=== PATIENT | female | born 1985 | race Asian ===

== ENCOUNTER 2018-02-20 08:29 | Emergency (ER) | payer OTHER ==
[2018-02-20 08:40] VITALS: BP 137/83
--- NOTE | 2018-02-20 13:39 | UC ---
Wilbur Richard Thomas, scribed for Brian Dunne MD on 02/20/18 at 0906 . GI Bleed HPI - HPI Summary HPI Summary: The patient is a 32 year old female complaining of rectal bleeding intermittently with bowel movements that is worse in the last two days. Every time she has a BM, she strains and there is some blood mixed with stools. Her pain is 2/10. She has no other complaints. - History Of Current Complaint Chief Complaint: UCGeneralIllness Stated Complaint: URINARY ISSUE Time Seen by Provider: 02/20/18 08:44 Hx Obtained From: Patient Hx Last Menstrual Period: 01/06/18 Onset/Duration: Lasting Days - 2, Still Present Timing: Intermittent Episodes Lasting: Severity: Blood-Streaked Stool Severity Currently: Mild Pain Intensity: 2 Pain Scale Used: 0-10 Numeric Aggravating Factor(s): Bowel Movement Alleviating Factor(s): Other - Nothing Associated Signs And Symptoms: Positive: Other - Blood mixed with stools - Allergies/Home medications Allergies/Adverse Reactions: Allergies Allergy/AdvReac Type Severity Reaction Status Date / Time No Known Allergies Allergy Verified 02/20/18 08:41 PMH/Surg Hx/FS Hx/Imm Hx Previously Healthy: Yes - NEGATIVE: DM, HTN - Surgical History Surgical History: None - Family History Family History: Patient denies any relevant FHx - Social History Alcohol Use: None Substance Use Type: None Smoking Status (MU): Never Smoked Tobacco - Immunization History Most Recent Influenza Vaccination: had during Most Recent Tetanus Shot: needs Most Recent Pneumonia Vaccination: na Review of Systems Constitutional: Negative - fever Gastrointestinal: Other - Bloody streaked stools Is Patient Immunocompromised?: No All Other Systems Reviewed And Are Negative: Yes Physical Exam - Summary Physical Exam Summary: VITAL SIGNS: Reviewed. GENERAL: Patient is a well-developed and nourished female who is lying comfortable in the stretcher. Patient is not in any acute respiratory distress. HEAD AND FACE: Normocephalic EYES: PERRLA, EOMI x 2. EARS: Hearing grossly intact. MOUTH: Oropharynx within normal limits. NECK: Supple, trachea is midline, no adenopathy, no JVD, no carotid bruit. CHEST: Symmetric, no tenderness at palpation LUNGS: Clear to auscultation bilaterally. No wheezing or crackles. CVS: Regular rate and rhythm, S1 and S2 present, no murmurs or gallops appreciated. ABDOMEN: Soft, non-tender. Bowel sounds are normal. No abdominal abnormal pulsations. RECTAL: I did a rectal examination, and the patient has one small hemorrhoid. It does not look like a thrombosed hemorrhoid. She has normal sphincter tone. She does not have melena or bright red blood per rectum. Juan José RN was present as a female area safety manager. EXTREMITIES: Full ROM in all major joints, no edema, no cyanosis or clubbing. NEURO: Alert and oriented x 3. No acute neurological deficits. Speech is normal and follows commands. SKIN: Dry and warm Triage Information Reviewed: Yes Vital Signs: Initial Vital Signs Temp 98 F 02/20/18 08:36 Pulse 92 02/20/18 08:36 Resp 16 02/20/18 08:36 BP 137/83 02/20/18 08:36 Pulse Ox 100 02/20/18 08:36 Vital Signs Reviewed: Yes Bleed Course/Dx - Course Course Of Treatment: The patient is a 32 year old female complaining of rectal bleeding intermittently with bowel movements that is worse in the last two days. Every time she has a BM, she strains and there is some blood mixed with stools. She has no other complaints. I did a rectal examination, and the patient has one small hemorrhoid. It does not look like a thrombosed hemorrhoid. She has normal sphincter tone. She does not have melena or bright red blood per rectum. The patient is diagnosed with hemorrhoids and given a prescription for Anusol. She was instructed to follow up with primary care in 2- 3 days. The patient was found to have increased BP in UC. The patient will follow up with PCP for better control of BP. I discussed all the findings and test results with the patient. Patient was instructed to return to the urgent care or go to ER immediately if any of the symptoms return or worsen. Plan of care was discussed with the patient, and patient understands and agrees. All questions were answered to patient satisfaction. There were no further complaints or concerns. - Differential Dx/Diagnosis Provider Diagnoses: Hemorrhoids Discharge - Sign-Out/Discharge Documenting (check all that apply): Discharge - Discharge Plan Condition: Stable Disposition: HOME Prescriptions: Hydrocortisone SUPP* [Anusol HC Supp*] 25 mg ME BID #14 supp Patient Education Materials: Hemorrhoids (DC) Referrals: [facility] [place] [facility] REFERRAL [Outside] Additional Instructions: FOLLOW UP WITH YOUR PRIMARY CARE PROVIDER WITHIN ONE WEEK FOR HIGH BLOOD PRESSURE NOTED TODAY. RETURN TO URGENT CARE OR THE EMERGENCY DEPARTMENT FOR ANY WORSENING OR NEW SYMPTOMS. The documentation as recorded by the Wilbur mack Thomas accurately reflects the service I personally performed and the decisions made by , Brian Dunne MD.
== END 2018-02-20 09:05 | disposition home or self-care (01) ==
LOC: UCEAST 08:29
DX: K64.9 Unspecified hemorrhoids (principal)
CPT/HCPCS: 82270; 99212; G0463

== ENCOUNTER 2019-01-24 16:10 | Emergency (ER) | payer OTHER ==
[2019-01-24 16:26] VITALS: BP 119/75
--- NOTE | 2019-01-24 16:45 | UC ---
Throat Pain/Nasal Shaquille HPI - HPI Summary HPI Summary: ST x 2 days, no better today feels much worse, now has fever - History of Current Complaint Chief Complaint: UCRespiratory Stated Complaint: SORE THROAT Time Seen by Provider: 01/24/19 16:33 Hx Obtained From: Patient Hx Last Menstrual Period: 01/06/18 Onset/Duration: Gradual Onset Severity: Moderate Pain Intensity: 8 Cough: Nonproductive Associated Signs & Symptoms: Positive: Fever - Allergies/Home Medications Allergies/Adverse Reactions: Allergies Allergy/AdvReac Type Severity Reaction Status Date / Time No Known Allergies Allergy Verified 01/24/19 16:26 PMH/Surg Hx/FS Hx/Imm Hx Previously Healthy: Yes - Surgical History Surgical History: None - Family History Known Family History: Positive: None Family History: Patient denies any relevant FHx - Social History Occupation: Employed Part-time Lives: With Family Alcohol Use: None Substance Use Type: None Smoking Status (MU): Never Smoked Tobacco - Immunization History Most Recent Influenza Vaccination: had during had fall Most Recent Tetanus Shot: needs Most Recent Pneumonia Vaccination: na Review of Systems All Other Systems Reviewed And Are Negative: Yes Constitutional: Positive: Fever, Fatigue Skin: Negative: Rash Eyes: Positive: Negative ENT: Positive: Sore Throat. Negative: Ear Ache, Sinus Pain/Tenderness Respiratory: Positive: Cough Cardiovascular: Positive: Negative. Negative: Chest Pain Musculoskeletal: Positive: Negative Neurological: Positive: Negative. Negative: Headache Is Patient Immunocompromised?: No Physical Exam Triage Information Reviewed: Yes Appearance: Well-Appearing, No Pain Distress, Well-Nourished Vital Signs: Initial Vital Signs Temp 100.0 F 01/24/19 16:24 Pulse 88 01/24/19 16:24 Resp 18 01/24/19 16:24 BP 119/75 01/24/19 16:24 Pulse Ox 100 01/24/19 16:24 Vital Signs Reviewed: Yes Eyes: Positive: Conjunctiva Clear ENT: Positive: Pharyngeal erythema, TMs normal. Negative: Sinus tenderness Neck exam: Normal Neck: Positive: No Lymphadenopathy Respiratory: Positive: Lungs clear Cardiovascular Exam: Normal Cardiovascular: Positive: RRR Musculoskeletal Exam: Normal Musculoskeletal: Positive: Strength Intact, ROM Intact Neurological Exam: Normal Neurological: Positive: Alert Psychological Exam: Normal Skin Exam: Normal Skin: Negative: Rashes Throat Pain/Nasal Course/Dx - Differential Dx/Diagnosis Differential Diagnosis/HQI/PQRI: Influenza, Sinusitis, Tonsillitis, URI Provider Diagnosis: Influenza B, Strep throat Discharge - Sign-Out/Discharge Documenting (check all that apply): Patient Departure All imaging exams completed and their final reports reviewed: No Studies - Discharge Plan Condition: Stable Disposition: HOME Prescriptions: Azithromycin TAB* [Zithromax TAB (Z-MORELIA) 250 mg #6 tabs] 250 mg PO DAILY #4 tab Oseltamivir CAP* [Tamiflu CAP*] 75 mg PO BID #9 cap Patient Education Materials: Strep Throat (ED), Influenza (ED) Forms: *Work Release Referrals: No Primary Care Phys,NOPCP [Primary Care Provider] - Patient Referred [facility] [[facility].BUSINESS, APPLICATION, OTHER] - Additional Instructions: drink plenty of fluids and rest make sure you get your prescriptions filled and start taking them as directed No work tomorrow ibuprofen 600mg every 6 hours for fever and pain Return here or to the emergency room if your symptoms worsen at anytime - Billing Disposition and Condition Condition: STABLE Disposition: Home - Attestation Statements Provider Attestation: I was available for consult. This patient was seen by the [facility]. The patient was not presented to , seen by or examined by mo -Mingo Santizo MD
[2019-01-24 17:01] LABS: Influenza B Molecular POSITIVE (Negative)
[2019-01-24] MEDS ORDERED: Oseltamivir CAP* 75 MG CAP PO ONE (17:05)
[2019-01-24] MEDS ORDERED: Azithromycin TAB* 250 MG PO ONE (17:07)
== END 2019-01-24 17:24 | disposition home or self-care (01) ==
LOC: UCEAST 16:10
DX: J10.1 Influenza due to other identified influenza virus with other respiratory manifestations (principal); J02.0 Streptococcal pharyngitis
CPT/HCPCS: 87651; 99212; A9270-GY; G0463

== ENCOUNTER 2020-11-13 12:48 | Inpatient (IN) ==
[2020-11-13] MEDS ORDERED: Buffered Lidocaine 1% SYRIN 1 ml INTRADERM ONE (13:41)
[2020-11-13] MEDS ORDERED: Lactated Ringers 1000 ml BAG 1,000 ML IV ONE (13:41)
[2020-11-13 14:29] LABS: Hematocrit 35 % (35-47); Red Blood Count 5.43 10^6 /uL (3.70-4.87); White Blood Count 8.8 10^3/uL (3.5-10.8)
[2020-11-13 14:53] LABS: BUN/Creatinine Ratio 10.2 (8-20); EGFR Non-African American 143.7 (>60); Potassium 3.8 mmol/L (3.5-5.0)
[2020-11-13 14:54] LABS: Albumin 3.7 g/dL (3.2-5.2); Albumin/Globulin Ratio 1.2 (1-3); Calcium 8.8 mg/dL (8.6-10.3); EGFR African American 173.9 (>60); Globulin 3.1 g/dL (2-4); Total Bilirubin 0.3 mg/dL (0.2-1.0); Total Protein 6.8 g/dL (6.4-8.9)
[2020-11-13 14:59] LABS: ABS Lymphocytes 1.8 10^3/ul (1.0-4.8); ABS Monocytes 0.6 10^3/ul (0-0.8); ABS Neutrophils 6.4 10^3/ul (1.5-7.7); Eosinophil % 0.4 %; Lymphocyte % 19.9 %; Mean Corpuscular HGB Conc 32 g/dL (31-36); Mean Corpuscular Hemoglobin 20 pg (27-31); Mean Corpuscular Volume 64 fL (80-97); Mean Platelet Volume 9.6 fL (7.4-10.4); Platelet Count 226 10^3/uL (150-450); Red Cell Distribution Width 17 % (10-15)
[2020-11-13 15:00] LABS: Urine Benzodiazepine Screen None Detected (None Detect); Urine Cannabinoids Screen None Detected (None Detect); Urine Opiates Screen None Detected (None Detect)
[2020-11-13] MEDS: Lactated Ringers 1000 ml BAG 1,000 ML IV SCH ×2 (16:32→17:43)
[2020-11-13] MEDS ORDERED: Terbutaline INJ 1 MG/ML 1 ml VIAL ONE (16:39)
[2020-11-13] MEDS ORDERED: Oxytocin in LR 20 UNITS/1,000 ML BAG IVPB ONE (20:20)
[2020-11-13] MEDS ORDERED: Witch Hazel PAD JAR TOPICAL PRN (22:20)
[2020-11-13] MEDS ORDERED: Dibucaine 1% OINT 28.35 GM TUBE PR PRN (22:20)
[2020-11-13] MEDS ORDERED: Lactated Ringers 1000 ml BAG 1,000 ML IV SCH (23:00)
[2020-11-13] MEDS ORDERED: Oxytocin in LR 20 UNITS/1,000 ML BAG IVPB SCH (23:00)
[2020-11-13] MEDS ORDERED: Ammonia Inhalant 1 EA AMP ONE (23:13)
[2020-11-14 08:24] LABS: ABS Lymphocytes 1.8 10^3/ul (1.0-4.8); ABS Monocytes 0.9 10^3/ul (0-0.8); ABS Neutrophils 12.7 10^3/ul (1.5-7.7); Eosinophil % 0.1 %; Hematocrit 32 % (35-47); Hemoglobin 10.2 g/dL (12.0-16.0); Lymphocyte % 11.8 %; Mean Corpuscular HGB Conc 32 g/dL (31-36); Mean Corpuscular Hemoglobin 20 pg (27-31); Mean Corpuscular Volume 63 fL (80-97); Mean Platelet Volume 10.3 fL (7.4-10.4); Platelet Count 223 10^3/uL (150-450); Red Blood Count 5.11 10^6 /uL (3.70-4.87); Red Cell Distribution Width 17 % (10-15); White Blood Count 15.4 10^3/uL (3.5-10.8)
[2020-11-14 22:15] VITALS: BP 108/54
== END 2020-11-14 21:53 | disposition home or self-care (01) | DRG 807 ==
LOC: MCHOBOUT 12:48 → MCHOB 13:16
PROVIDERS: ADMIT Midwife; ATTEND Midwife